=== PATIENT | male | born 1955 | race Caucasian/White ===

== ENCOUNTER 2025-01-04 12:55 | Emergency (ER) | payer MEDICARE, SELFPAY ==
--- NOTE | ~2025-01-04 | XR_ITS ---
EXAM/PROCEDURE: XR chest 2V HISTORY: Cough, SOB, x 3 days COMPARISON: None available. TECHNIQUE: Two view(s) of the chest. FINDINGS: LUNGS: Clear of acute processes. PLEURAL SPACES: Clear. No evidence of fluid or pneumothorax. HEART/ MEDIASTINUM: Normal in appearance. SOFT TISSUES: No significant findings. BONES: No acute osseous abnormality. IMPRESSION: No acute findings. Reviewed, dictated and finalized at location A. N YARD DRIER IMPRESSION: No acute findings.
--- NOTE | 2025-01-04 13:00 | ED.URI ---
HPI - URI/Sore Throat General Chief Complaint: Upper Respiratory Infection Stated Complaint: URI Time Seen by Provider: 01/04/25 13:09 Source: patient, RN notes reviewed and old records reviewed Mode of arrival: ambulatory Limitations: no limitations History of Present Illness HPI Narrative: 69-year-old male presents to the [facility] with complaints of sinus and chest congestion. Denies any fevers. Currently denies any chest pain. States 3-4 days ago had taken a hot shower, flu is nose felt anxiety in his heart racing. Has been taken [id number] medications with minimal relief Patient states that whenever he is outside and thinks that due to mold his symptoms get worse Onset (ago): week(s) (3) Treatments prior to arrival: cold medicine Related Data Allergies Allergy/AdvReac Type Severity Reaction Status Date / Time Gadolinium-Containing Allergy Severe Anaphylaxis Verified 01/04/25 13:19 Contrast Medi ioversol Allergy Severe Anaphylaxis Verified 01/04/25 13:19 Penicillins Allergy Severe Anaphylaxis Verified 01/04/25 13:19 pseudoephedrine (From AdvReac Anxiety Verified 01/04/25 15:45 Sudafed) Review of Systems Review of Systems: All systems reviewed & are unremarkable except as noted in HPI and below Constitutional: Constitutional: Reports no additional constitutional complaints ENT: Reports as per HPI Cardiovascular: Cardiovascular: Reports no additional cardiovascular complaints, Denies chest pain and Denies dyspnea Respiratory: Respiratory: Reports as per HPI, Reports chest congestion, Reports cough and Denies dyspnea Musculoskeletal: Musculoskeletal: Reports no additional musculoskeletal complaints Integumentary/Breasts: Skin/Breast: Reports system reviewed and no additional complaints, except as docu PMFSH Family History Family History Mother Patient's mother is in good health Father Patient's father is in good health Social History Social History Smoking status: Never smoker Alcohol intake: never Comments At the time of my signature, I reviewed and agree with the nursing past medical, surgical, social, and family history. There is no relevant family history pertinent to the patient complaint. Exam Const: General: cooperative, healthy appearing, comfortable, no acute distress, well developed, alert and well nourished Nutritional Appearance: well nourished and obese Orientation/consciousness: patient oriented x3 Limitations: no limitations HENMT: Head: normal to inspection Ears: hearing grossly normal bilaterally, external ears normal, TM's normal bilaterally, EAC's normal, mastoids normal and no periauricular adenopathy Throat: postnasal drainage Eyes: General: appearance normal, both eyes and all related structures Alignment and Position: alignment normal Neck: Neck: normal visual inspection, full ROM, no lymphadenopathy and no meningeal signs Chest: Chest palpation & inspection: normal inspection of the chest Resp: Effort & Inspection: normal respiratory effort and able to speak in complete sentences Auscultation: no crackles, no rales, no rhonchi, no wheezes and diminished lung sounds bilateral throughout Cardio: Rate: regular rate Skin: General skin exam: normal color and no rashes or lesions noted Other: patient has a bandage over a skin cancer currently not under treat, left neck Neuro: General: patient oriented x3, gait normal, moves all extremities and no meningeal signs Cognition (Neuro): normal cognition Speech: normal speech Gait exam (Neuro): Normal gait present Extrem: General: normal to inspection, full ROM, capillary refill normal and normal gait Psych: Appearance: grossly normal and well kempt Mental Status: mental status grossly normal Speech and movement: Normal speech and movement present and Clear speech present Affect: normal affect Attitude: cooperative Course Course Level of Care: Express Care Visit Vital Signs Vital signs: Vital Signs Temperature 98.1 F 01/04/25 13:11 Pulse Rate 103 H 01/04/25 13:11 Respiratory Rate 18 01/04/25 13:11 Blood Pressure 148/62 H 01/04/25 13:11 Pulse Oximetry 100 01/04/25 13:11 Oxygen Delivery Room Air 01/04/25 13:11 Temperature 98.1 F 01/04/25 13:11 Pulse Rate 103 H 01/04/25 13:11 Respiratory Rate 18 01/04/25 13:11 Blood Pressure 148/62 H 01/04/25 13:11 Pulse Oximetry 100 01/04/25 13:11 Oxygen Delivery Room Air 01/04/25 13:11 Reviewed MDM - URI/Sore Throat MDM Narrative Medical decision making narrative: patient sitting in exam room. Presents with . For 3 weeks has had intermittent worsening symptoms of URI, possible allergies to mold. Patient reports sinus congestion, coughing, sneezing, chest congestion. X-ray with no acute findings. 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 Patient states he will follow-up as soon is some family issues are resolved. Discharge instructions reviewed with patient, as well as provided in writing per nursing staff. The instructions also include specific and strict return/GO TO THE ER as well as f/u information. All questions have been answered, and the patient deny any further questions with discharge and discharge plan. Some parts of this dictation were generated by voice recognition software and may contain typographical and/or grammatical inaccuracies. Differential Diagnosis Differential diagnosis: Likely upper respiratory infection, otitis media, sinusitis, viral infection, bronchitis, influenza and pharyngitis Imaging Data Radiologist's impression: TECHNIQUE: Two view(s) of the chest. FINDINGS: LUNGS: Clear of acute processes. PLEURAL SPACES: Clear. No evidence of fluid or pneumothorax. HEART/ MEDIASTINUM: Normal in appearance. SOFT TISSUES: No significant findings. BONES: No acute osseous abnormality. IMPRESSION: No acute findings. Critical Care Time Critical Care Time Critical Care Time: No Discharge Plan Discharge Clinical Impression: Bronchitis Sinusitis Qualifiers: Sinusitis location: unspecified location Patient Disposition: Home Condition: Stable Instructions: Antibiotic Form, Sinusitis (ED), Acute Bronchitis (ED) Additional Instructions: It is very important to treat your symptoms. Drink plenty of water, Gatorade, Pedialyte, ice pops or Jell-O. -Alternate Tylenol and Motrin per package directions for fever or pain. You can alternate every 4 hours -Antihistamine medication such as Zyrtec/Claritin during the day can help improve symptoms. -doing daily nasal irrigations can help relieve pressure your sinuses. Things like a Neti pot -Use Flonase twice a day for 5 days then daily to help reduce the inflammation and dry up your sinuses. -You can also use Mucinex. Be sure to drink plenty of water with this medication at least 8 ounces with every dose and it is important to drink 8 to 10 glasses of water per day. Water is a natural decongestant -Frequent hand washing or hand machine ironer is one of the best ways to prevent spread of infection. -Using a vaporizer or humidifier at night will also help thin secretions and help with coughing up phlegm. -Follow up with primary care provider in 7-10 days if condition is not improving If you are having a hard time finding a physician please call our [facility] group liaison at [phone]. - For new or worsening symptoms go directly to the nearest ER Patient Language: Malay Prescriptions: New doxycycline monohydrate 100 mg tablet 100 mg PO BID Qty: 14 0RF methylprednisolone [Medrol (Santos)] 4 mg tablets,dose pack See Rx Instructions PO .COMPLEX Qty: 21 0RF Rx Instructions: orally per package directions Follow-up/Referrals: Ramón Larson MD [Physician, Internal Medicine] Time of Disposition: 13:52
[2025-01-04 13:11] VITALS: BP 148/62; PULSE 103; RESP 18; TEMP 36.7; O2SAT 100
--- OUTSIDE RECORDS SUMMARY | 2025-01-04 17:14 | XMS_ITS | Clinical Summary ---
Author Organization [facility] Address [address] [place] [id number] Care Team Providers Care Lieutenant/Deputy Name Role Phone Unavailable Primary Care Provider Unavailabl e Social History Tobacco Use Types Packs/Day Years Used Date Smoking Tobacco: Never Assessed Sex and Gender Information Value Date Recorded Sex Assigned at Not on file Legal Sex Male 7:24 PM CDT Gender Identity Not on file Sexual Orientation Not on file Plan of Treatment Health Maintenance Due Date Last Done Comments Colorectal Cancer Screening Colonoscopy (10 Years) 1956 Hepatitis C 1974 DTaP, Tdap and Td Vaccines ( 1 - Tdap) 05/29/1975 Pneumococcal Vaccine: 50+ Ye ars (1 of 1 - PCV) 2006 Zoster Vaccines (1 of 2) 2006 COVID-19 Vaccine ( - 2024-2 6 season) 2024 Influenza Adult (#1) 2024 RSV Immunization or 60+ Years (1 - 1-dose 75+ series) 05/29/2031 Hepatitis A Vaccines Aged Out No long er eligible based on patient's age to complete this topic Meningococcal B Vaccine Aged Out No l onger eligible based on patient's age to complete this topic Meningococcal Vaccine Aged Out No trell kaitlyn eligible based on patient's age to complete this topic RSV Immunizations Under 20 Months Aged Out No longer eligible based on patient's age to complete this topic
== END 2025-01-04 13:58 | disposition home or self-care (01) ==
PROVIDERS: Emergency Provider Nurse Practitioner; PCP Nurse Practitioner
DX: J40 Bronchitis, not specified as acute or chronic (principal); J32.9 Chronic sinusitis, unspecified
CPT/HCPCS: 71046; 99203; G0463

== ENCOUNTER 2025-02-10 10:50 | Emergency (ER) | payer MEDICARE, SELFPAY ==
[2025-02-10] VITALS (41 sets, daily range): BP systolic 125–185; BP diastolic 58–89; PULSE 78–93; RESP 6–21; TEMP 36.8–37.3; O2SAT 90–100
--- NOTE | ~2025-02-10 | XR_ITS ---
Examination: XR chest 2V Clinical History: sob Comparison: 01/04/2025 Technique: PA and Lateral Findings: Mild cardiomegaly. Lungs clear. No acute bony abnormality. IMPRESSION: 1. No acute cardiopulmonary findings. Reviewed, dictated and finalized at location R. L CUT OFF SAW OPERATOR
--- NOTE | ~2025-02-10 | CT_ITS ---
EXAMINATION: CT soft tissue neck wo con DATE: 02/10/2025 17:32 INDICATION: 69-year-old male finding of mass side of the neck. TECHNIQUE: Computed tomography (CT) of the neck was performed without administration of intravenous contrast. Automated exposure control and iterative reconstruction technique were employed. The dose-length product was 537.18 mGy-cm. COMPARISON: None FINDINGS: Evidence of a large, irregular infiltrative subcutaneous mass is noted in the mid and lower left neck. The mass measures 7 x 3 x 6 cm in size. Likely malignant cutaneous, subcutaneous mass on the left side of the neck. Mildly enlarged cervical lymph nodes on both sides to 10 mm in short axis. Severe thyromegaly especially of the right lobe of the thyroid gland measuring 11 x 5 m in long axis. Mild compression of the trachea and deviation of trachea to the left. IMPRESSION: 1. Large irregular infiltrative subcutaneous mass of the mid and lower left neck was 7 x 3 x 6 cm in size. Nonspecific mild cervical adenopathy. This finding is likely due to be a malignant neoplasm. Surgical biopsy is recommended. 2. Significant thyromegaly, right much larger than left with multiple thyroid nodules. Mild compression and deviation of trachea to the left. Reviewed, dictated and finalized at location T. LE HOMES REPAIRER IMPRESSION: 1. Large irregular infiltrative subcutaneous mass of the mid and lower left nec k was 7 x 3 x 6 cm in size. Nonspecific mild cervical adenopathy. This finding is likely due to be a malignant neoplasm. Surgical biopsy is recommended. 2. Significant thyromegaly, right much larger than left with multiple thyroid n odules. Mild compression and deviation of trachea to the left.
--- NOTE | ~2025-02-10 | CT_ITS ---
EXAMINATION: CT chest, abdomen and pelvis without contrast: DATE: 02/10/2025. INDICATION: 69-year-old with left-sided neck mass. Anemia. Possible metastatic disease. TECHNIQUE: CT was performed without IV contrast and reviewed in multiple projections. COMPARISON: None. FINDINGS: Noncalcified irregular pulmonary nodule in the left upper lobe 2.4 cm in diameter. No other focal pulmonary lesions. No hilar or mediastinal adenopathy. No pleural or pericardial effusion. Low density of blood pool within the cardiac chambers consistent with severe anemia. Cardiomegaly. Below the diaphragm, no definite focal lesions of liver and spleen. Calcified gallstones in the gallbladder. No retroperitoneal adenopathy or bowel obstruction. Diverticulosis of distal colon. No evidence of lytic or blastic bone changes of thoracolumbar spine and pelvic bones. IMPRESSION: 1. Limited examination without IV contrast, not optimal to evaluate neoplasms and vascular structures and solid viscera. 2. Irregular 2.4 cm size noncalcified nodule in the left upper lobe lingula. Primary versus metastatic pulmonary neoplasm. 3. Cardiomegaly and evidence of significant anemia. 4. Below the diaphragm, no definite focal abnormalities of the than small calcified gallstones, mild hepatomegaly and diverticulosis. Reviewed, dictated and finalized at location T. GE AIDE IMPRESSION: 1. Limited examination without IV contrast, not optimal to evaluate neoplasms a nd vascular structures and solid viscera. 2. Irregular 2.4 cm size noncalcified nodule in the left upper lobe lingula. Pr imary versus metastatic pulmonary neoplasm. 3. Cardiomegaly and evidence of significant anemia. 4. Below the diaphragm, no definite focal abnormalities of the than small calci fied gallstones, mild hepatomegaly and diverticulosis.
--- OUTSIDE RECORDS SUMMARY | 2025-02-10 10:52 | XMS_ITS | Clinical Summary ---
Author Organization [facility] Address [address] [place] [id number] Care Team Providers Care Soldering Machine Feeder Name Role Phone Unavailable Primary Care Provider [...]
--- NOTE | 2025-02-10 13:03 | ECG_ITS ---
Test Date: 2025-02-10 13:10:15 Measurements Intervals [place] Rate: 80 P: -41 MA: 139 QRS: 67 QRSD: 115 T: 62 QT: 390 QTc: 453 Interpretive Statements SINUS RHYTHM INTRAVENTRICULAR CONDUCTION DELAY BORDERLINE ST-T WAVE ABNORMALITY- INF/LAT LEADS BASELINE ARTIFACT- I, II, III, AVR, AVL, V3-V5 BORDERLINE ECG No previous ECG available for comparison Electronically Signed On 02-10-2025 17:15:32 MANUFACTURING AREA MANAGER by Pedro Candelario D.O.
[2025-02-10 13:32] LABS: Alanine Aminotransferase 17 U/L (6-50); Albumin Level 4.0 g/dL (3.5-5.1); Alkaline Phosphatase 70 U/L (38-126); Anion Gap 10 mmol/L (4-12); Aspartate Amino Transferase 28 U/L (17-59); Bilirubin,Total 0.7 mg/dL (0.2-1.3); Blood Urea Nitrogen 15 mg/dL (9-20); Calcium 8.7 mg/dL (8.4-10.2); Carbon Dioxide 24 mmol/L (22-30); Chloride 105 mmol/L (98-107); Estimated CRCL calculation 92 ml/min; Estimated Glomerular Filt Rate > 60; Glucose 108 mg/dL (65-110); Potassium 3.9 mmol/L (3.4-5.0); Sodium 139 mmol/L (137-145); Total Protein 7.5 g/dL (6.3-8.2)
[2025-02-10 13:58] LABS: Influenza A QL RT-PCR Negative (Negative); Influenza B QL RT-PCR Negative (Negative); RSV RNA, RT-PCR Negative (Negative); SARS-CoV-2 RNA PCR Negative (Negative)
[2025-02-10 14:08] LABS: Immature Granulocyte Percent A 0.3 % (0-0.5); Lymphocytes Absolute Auto 1.32 K/mm3 (0.9-3.2); Mean Corpuscular HGB Conc 23.5 g/dl (32-36); Mean Corpuscular Hemoglobin 13.2 pg (26-34); Mean Corpuscular Volume 56.1 fl (80-100); Nucleated Red Blood Cells Absolute Auto 0.020 K/mm3 (0.0-0.012); Nucleated Red Blood Cells Perc 0.3 % (0.0-0.2); Platelet Count Result 593 k/mm3 (150-375); Red Blood Count 2.12 M/mm3 (4.6-6.20); White Blood Count 7.5 K/mm3 (4.5-10.0)
[2025-02-10 14:10] LABS: Hematocrit 11.9 % (42.0-52.0); Hemoglobin 2.8 g/dL (14.0-18.0)
[2025-02-10 14:14] LABS: Anisocytosis 2+; Hypochromasia 3+; Microcytosis 2+ (NORMAL); Ovalocytes 1+; Target Cells 1+
[2025-02-10 14:16] LABS: Schistocytes Rare
--- NOTE | 2025-02-10 14:24 | ED.SOB ---
HPI - SOB/Dyspnea General Chief Complaint: Shortness of Breath/Dyspnea Stated Complaint: I have been having trouble with my lungs Time Seen by Provider: 02/10/25 13:09 Source: patient Mode of arrival: ambulatory Limitations: no limitations History of Present Illness HPI Narrative: This is a 69-year-old male who presents the ED for flu-like symptoms and weakness. Patient states over the past 6 weeks, he has been having nasal congestion in a chest burning sensation. He was seen by urgent care and was given prescriptions for a Medrol Dosepak and doxycycline. He did not take the Medrol Dosepak due to prior side effects. He has continued to have the symptoms prompting him to come to the ED. He states the ED is getting out of breath when mowing the lawn and blowing leaves within 2-5 minutes of starting his activities which is new for him. Denies swelling in his legs. Denies blood in stool. Last colonoscopy was at least 10 years ago. Related Data Allergies Allergy/AdvReac Type Severity Reaction Status Date / Time Gadolinium-Containing Allergy Severe Anaphylaxis Verified 02/10/25 13:07 Contrast Medi ioversol Allergy Severe Anaphylaxis Verified 02/10/25 13:07 Penicillins Allergy Severe Anaphylaxis Verified 02/10/25 13:07 pseudoephedrine (From AdvReac Anxiety Verified 02/10/25 13:07 Sudafed) Review of Systems Review of Systems: All systems reviewed & are unremarkable except as noted in HPI and below PMFSH Family History Family History Mother Patient's mother is in good health Father Patient's father is in good health Social History Social History Smoking status: Never smoker Alcohol intake: never Exam Narrative: APPEARANCE: No acute distress, nontoxic, resting in bed EYES: EOMI, conjunctival pallor HEENT: Normocephalic, atraumatic, mucosal pallor. Large fungating mass over the left neck, no active bleeding RESPIRATORY: No respiratory distress Clear to auscultation bilaterally with no rhonchi wheezing or rales. CARDIOVASCULAR: Regular rate and rhythm without murmurs rubs or gallops. ABDOMINAL: Soft, nontender, nondistended, no rebound or guarding MUSCULOSKELETAl: Moves all extremities. No clubbing, cyanosis or edema. NEURO: Awake and alert. Following commands, speech normal, no focal deficits SKIN:: Warm, dry. No rashes lesions or abrasions PSYCHIATRIC: Normal affect/mood, Course Vital Signs Vital signs: Vital Signs Temperature 98.2 F 02/10/25 11:09 Pulse Rate 93 02/10/25 11:09 Respiratory Rate 19 02/10/25 11:09 Blood Pressure 125/58 L 02/10/25 11:09 Pulse Oximetry 100 02/10/25 11:09 Oxygen Delivery Room Air 02/10/25 11:09 Temperature 99.1 F 02/10/25 18:49 Pulse Rate 91 02/10/25 19:38 Respiratory Rate 18 02/10/25 19:38 Blood Pressure 175/69 H 02/10/25 19:38 Pulse Oximetry 98 02/10/25 19:38 Oxygen Delivery Room Air 02/10/25 11:09 MDM MDM Narrative Medical decision making narrative: 69-year-old male Presenting for nasal congestion and dyspnea on exertion. On initial evaluation patient was in no acute distress afebrile, hemodynamic stable. Differentials include but are not limited to: Sinusitis, pneumonia, electrolyte abnormality, anemia, cancer Notable exam findings: Large fungating mass over the left neck, pale appearing I personally reviewed the patient's lab result. Notable lab findings: Hgb 2.8, CMP without significant abnormalities. Covid/Flu/RSV negative. I personally reviewed the patient's EKGs: Normal sinus rhythm, normal axis, normal intervals, no acute ST or T-wave changes Patient was given 2u pRBCs. Patient will require admission for severe anemia and hematology work up. I discussed the case with Hospitalist, recommended adding CT neck and chest/abdomen/pelvis. Scans showed a large infiltrative subcutaneous left neck mass, large thyromegaly with mild tracheal deviation. I discussed the case with Dr. Cardoza, ENT at [facility], recommends the patient be transferred and plans on biopsy. Discussed case with Dr. Jordan, EM at [facility], will accept the patient in ED to ED transfer. Patient and family agreeable to this plan. Differential Diagnosis Differential Diagnosis: Sinusitis, pneumonia, electrolyte abnormality, anemia, cancer Lab Data 02/10/25 14:04 02/10/25 13:13 Labs: Lab Results 02/10/25 02/10/25 02/10/25 Range/Units 13:13 14:04 14:16 WBC 7.5 (4.5-10.0) K/mm3 RBC 2.12 L (4.6-6.20) M/mm3 Hgb 2.8 L* (14.0-18.0) g/dL Hct 11.9 L* (42.0-52.0) % MCV 56.1 L (80-100) fl MCH 13.2 L (26-34) pg MCHC 23.5 L (32-36) g/dl RDW 21.8 H (11.5-14.5) % Plt Count 593 H (150-375) k/mm3 MPV 9.5 (7.4-10.4) fl Immature Gran % (Auto) 0.3 (0-0.5) % Neut % (Auto) 72.0 (45.5-73.1) % Lymph % (Auto) 17.5 L (18.3-44.2) % [place] % (Auto) 9.8 H (2.6-8.5) % Eos % (Auto) 0.1 (0-4.4) % Baso % (Auto) 0.3 (0.2-1.2) % Lymph # (Auto) 1.32 (0.9-3.2) K/mm3 [place] # (Auto) 0.7 H (0.1-0.6) K/mm3 Eos # (Auto) 0.0 (0-0.3) K/mm3 Baso # (Auto) 0.0 (0.0-0.1) K/mm3 Abs Immat Gran (auto) 0.02 (0.00-0.031) K/mm3 Absolute Neuts (auto) 5.4 (1.3-6.7) K/mm3 Absolute Nucleated RBC 0.020 H (0.0-0.012) K/mm3 Band Neutrophils % Not Reportable Nucleated RBC % 0.3 H (0.0-0.2) % Platelet Estimate Increased (Adequate) Hypochromasia 3+ Anisocytosis 2+ Microcytosis 2+ (NORMAL) Target Cells 1+ Ovalocytes 1+ Schistocytes Rare Sodium 139 (137-145) mmol/L Potassium 3.9 (3.4-5.0) mmol/L Chloride 105 (98-107) mmol/L Carbon Dioxide 24 (22-30) mmol/L Anion Gap 10 (4-12) mmol/L BUN 15 (9-20) mg/dL Creatinine 0.97 (0.7-1.3) mg/dL Estim Creat Clear Calc 92 ml/min Estimated GFR > 60 (59 - ) Glucose 108 (65-110) mg/dL Calcium 8.7 (8.4-10.2) mg/dL Total Bilirubin 0.7 (0.2-1.3) mg/dL AST 28 (17-59) U/L ALT 17 (6-50) U/L Alkaline Phosphatase 70 (38-126) U/L Total Protein 7.5 (6.3-8.2) g/dL Albumin 4.0 (3.5-5.1) g/dL TSH (Reflex) 0.124 L (0.465-4.68) uIU/mL Free T4 1.63 (0.78-2.19) ng/dL Total T3 1.14 (0.82-1.58) NG/ML Influenza A (RT-PCR) Negative (Negative) Influenza B (RT-PCR) Negative (Negative) RSV (RT-PCR) Negative (Negative) SARS-CoV-2 RNA (RT-PCR) Negative (Negative) Blood Type O Positive Antibody Screen Negative Crossmatch See Detail Imaging Data Radiologist's impression: ITS Impressions Chest X-Ray 02/10/25 13:40 IMPRESSION: 1. No acute cardiopulmonary findings. Soft Tissue Neck CT 02/10/25 17:34 IMPRESSION: 1. Large irregular infiltrative subcutaneous mass of the mid and lower left neck was 7 x 3 x 6 cm in size. Nonspecific mild cervical adenopathy. This finding is likely due to be a malignant neoplasm. Surgical biopsy is recommended. 2. Significant thyromegaly, right much larger than left with multiple thyroid nodules. Mild compression and deviation of trachea to the left. Chest/Abdomen/Pelvis CT 02/10/25 17:40 IMPRESSION: 1. Limited examination without IV contrast, not optimal to evaluate neoplasms and vascular structures and solid viscera. 2. Irregular 2.4 cm size noncalcified nodule in the left upper lobe lingula. Primary versus metastatic pulmonary neoplasm. 3. Cardiomegaly and evidence of significant anemia. 4. Below the diaphragm, no definite focal abnormalities of the than small calcified gallstones, mild hepatomegaly and diverticulosis. Discharge Plan Discharge Clinical Impression: Severe anemia, Mass in neck, Thyromegaly, Pulmonary nodule Patient Disposition: Acute Care Hospital Condition: Stable Patient Language: Korean Prescriptions: No Action doxycycline monohydrate 100 mg tablet 100 mg PO BID Qty: 14 0RF methylprednisolone [Medrol (Santos)] 4 mg tablets,dose pack See Rx Instructions PO .COMPLEX Qty: 21 0RF Rx Instructions: orally per package directions Follow-up/Referrals: Yosvany Long APRN [Primary Care Provider, Internal Medicine]
[2025-02-10] MEDS: SODIUM CHLORIDE 0.9% IV 250 ML 30 ML IV CONT (16:23)
[2025-02-10] MEDS: TUBING, BLOOD SET 1 EACH XX (16:23)
[2025-02-10 18:42] LABS: Thyroid Stimulating Hormone Reflex 0.124 uIU/mL (0.465-4.68)
[2025-02-10 19:20] LABS: Free T4 Free Thyroxine Reflex 1.63 ng/dL (0.78-2.19)
--- NOTE | 2025-02-10 19:22 | PC.NURSE ---
Report received from CASE Rojas. Assumed care of patient at this time.
[2025-02-10 20:07] LABS: Total Triiodothyronine (T3) 1.14 NG/ML (0.82-1.58)
== END 2025-02-10 19:40 | disposition short-term general hospital (02) ==
PROVIDERS: Family Medicine; Emergency Provider Student in an Organized Health Care Education/Training Program; PCP Nurse Practitioner
DX: D64.9 Anemia, unspecified (principal); R22.1 Localized swelling, mass and lump, neck; E01.0 Iodine-deficiency related diffuse (endemic) goiter; R91.1 Solitary pulmonary nodule; Z20.822 Contact with and (suspected) exposure to COVID-19
CPT/HCPCS: 36415; 36430; 70490; 71046; 71250; 74176; 80053; 84439; 84443; 84480; 85025; 86850; 86900; 86901; 86923; 87637; 93005; 96360; 96361; 99285; J7050; P9016